=== PATIENT | female | born 1970 | race Caucasian/White ===

== ENCOUNTER → 2018-01-15 12:22 | Outpatient (CLI) | payer BC, SELFPAY ==
--- NOTE | 2018-01-15 12:30 | XR_ITS ---
XR acute abdomen series HISTORY: ITS.REASON: LUQ PAIN ORDERING PHYSICIAN: Julio Cesar Flores MD PATIENT AGE: 47 years COMPARISON: None FINDINGS: A frontal view of the chest shows patchy density in the left lung base consistent with atelectasis and/or infiltrate. Upright and supine views of the abdomen demonstrate surgical clips in the right upper quadrant. Faint calcific density is present in the mid aspect of the right kidney measuring up to 5 mm and in the upper pole the left kidney consistent bilateral nephrolithiasis. There are multiple pelvic calcifications present nonspecific and may be due to phleboliths. No intestinal obstruction or free air. IMPRESSION: 1. Left lower lobe atelectasis or infiltrate. 2. Bilateral nephrolithiasis
== END ==
PROVIDERS: PCP Family Medicine; Visit Provider Family Medicine
DX: R10.12 Left upper quadrant pain (principal)
CPT/HCPCS: 74021

== ENCOUNTER → 2018-02-05 14:24 | Outpatient (CLI) | payer BC, SELFPAY ==
--- NOTE | 2018-02-05 14:27 | XR_ITS ---
XR chest 2V HISTORY: ITS.REASON: PNEUMONIA ORDERING PHYSICIAN: Vlad Cheung MD PATIENT AGE: 47 years COMPARISON: 03/19/2015 FINDINGS: The cardiomediastinal silhouette and pulmonary vascularity are within normal limits. No lobar consolidation or collapse is evident. Linear densities are present in the right middle lobe and lingula consistent with atelectatic changes or fibrosis. No acute bony anomalies. IMPRESSION: Right middle lobe and lingular atelectasis or fibrosis otherwise negative
== END ==
PROVIDERS: PCP Family Medicine; Visit Provider Family Medicine
DX: J18.1 Lobar pneumonia, unspecified organism (principal)
CPT/HCPCS: 71046

== ENCOUNTER → 2018-02-20 13:17 | Outpatient (CLI) | payer BC, SELFPAY ==
--- NOTE | 2018-02-20 13:29 | CT_ITS ---
CT chest w con HISTORY: ITS.REASON: CHEST PAIN,ABNORMAL CXR ORDERING PHYSICIAN: Vlad Cheung MD PATIENT AGE: 47 years TECHNIQUE: Axial images obtained following the administration of 75 mL of Isovue 370 . Sagittal, and coronal reformatted images are also generated and reviewed. All CT scans at the facility use one or more dose reduction, viz: automated exposure control; ma/kV adjustment per patient size (including targeted exams where dose is matched to indication; i.e. head); or iterative reconstruction technique. COMPARISON: None FINDINGS: No evidence of aortic aneurysm or central pulmonary embolus. No mediastinal or hilar mass or adenopathy. No obvious coronary artery calcifications or pericardial effusion. There are dependent changes in the posterior hemithoraces bilaterally atelectatic changes are present in the right middle lobe, lingula, and left lower lobe/superior segment. No suspicious pulmonary nodules or effusions. No central obstructing lesions. Upper abdominal images are unremarkable. There is mild thoracic scoliosis convex right. IMPRESSION: 1. Atelectatic changes in the right middle lobe, lingula, and both lower lobes. 2. Old granulomatous disease. 3. Otherwise negative CT chest without contrast
== END ==
PROVIDERS: Family Provider Emergency Medicine; PCP Family Medicine; Visit Provider Family Medicine
DX: R07.9 Chest pain, unspecified (principal); R93.8 Abnormal findings on diagnostic imaging of other specified body structures
CPT/HCPCS: 71260; Q9967

== ENCOUNTER → 2018-05-04 07:24 | Outpatient (CLI) | payer BC, SELFPAY ==
[2018-05-04 07:30] LABS: Microscopic, Urine URINE MICROSCOPIC (MICROSCOPIC)
[2018-05-04 07:49] LABS: Appearance,Urine SL CLOUDY (Clear); Basophils # 0.1 K/mm3 (0-0.2); Basophils % 0.6 % (0.1-2.0); Bilirubin,Urine Negative (Negative); Blood, Urine Negative (Negative); Color,Urine YELLOW (Yellow); Eosinophils # 0.2 K/mm3 (0.0-0.4); Eosinophils % 2.2 % (0.1-12.0); Glucose,Urine (UA) Negative (Negative); Hematocrit 49.1 % (37.0-47.0); Hemoglobin 16.2 g/dL (12.2-16.2); Ketones,Urine Negative (Negative); Leukocyte Esterase,Urine Negative (Negative); Lymphocytes # 2.5 K/mm3 (0.7-4.5); Mean Corpuscular HGB Conc 32.9 g/dL (31.8-35.4); Mean Corpuscular Hemoglobin 30.9 pg (27.0-31.2); Mean Corpuscular Volume 93.8 fl (81-99); Monocytes # 0.3 K/mm3 (0.1-1.0); Neutrophils # 5.4 K/mm3 (1.8-7.8); Neutrophils % 63.2 % (37.0-80.0); Nitrate,Urine Negative (Negative); Platelet Count 351 K/mm3 (142-424); Protein,Urine Negative (Negative); Red Blood Count 5.24 M/mm3 (4.20-5.40); Red Cell Distribution Width 13.1 % (11.5-17.5); Specific Gravity, Urine 1.025 (1.005-1.030); Urobilinogen,Urine 0.2 EU/dl (0.2); White Blood Count 8.5 K/mm3 (4.8-10.8)
[2018-05-04 08:05] LABS: Bacteria,Urine 3+ /lpf; Mucus,Urine 1+ /lpf; WBC,Urine Occasional #/hpf (0-3)
[2018-05-04 10:10] LABS: Alanine Aminotransferase 22 U/L (12-78); Albumin Level 3.9 gm/dL (3.4-5.0); Albumin/Globulin Ratio 1.1 (1.1-1.8); Alkaline Phosphatase 149 U/L (46-116); Amylase 86 U/L (25-125); Anion Gap 14.4 mEq/L (5-15); Aspartate Amino Transferase 17 U/L (15-37); Blood Urea Nitrogen 8 mg/dL (7-18); Calcium 9.8 mg/dL (8.5-10.1); Carbon Dioxide 30 mmol/L (21.0-32.0); Chloride 104 mmol/L (98-107); Creatinine,Serum 0.91 mg/dL (0.55-1.02); Estimated Glomerular Filt Rate 66 ml/min (>60); Free T4 (Free Thyroxine) 1.37 ng/dl (0.76-1.46); GFR (African American) 80 ML/MIN (>60); Globulin 3.6 gm/dl (1.3-3.2); Glucose 88 mg/dL (74-106); Lipase 294 u/L (73-393); Potassium 4.4 mmoL/L (3.5-5.1); Sodium 144 mmol/L (136-145); Thyroid Stimulating Hormone 0.42 uIU/ml (0.358-3.740); Total Protein,Serum 7.5 gm/dL (6.4-8.2)
== END ==
PROVIDERS: Visit Provider Family Medicine
DX: M54.9 Dorsalgia, unspecified (principal); E03.9 Hypothyroidism, unspecified; R19.7 Diarrhea, unspecified
CPT/HCPCS: 36415; 80053; 81001; 82150; 83690; 84439; 84443; 85025; 87086

== ENCOUNTER → 2018-05-13 08:55 | Outpatient (CLI) | payer BC, SELFPAY ==
--- NOTE | 2018-05-13 08:59 | CT_ITS ---
CT abdomen pelvis w con CLINICAL INDICATION: Right upper quadrant pain ITS.REASON: PELVIC PAIN, UPPER ABD PAIN ORDERING PHYSICIAN: Vlad Cheung MD PATIENT AGE: 47 years COMPARISON: 03/12/2015 TECHNIQUE: Axial images obtained with sagittal and coronal reformats. All CT scans at the facility use one or more dose reduction, viz: automated exposure control; ma/kV adjustment per patient size (including targeted exams where dose is matched to indication; i.e. head); or iterative reconstruction technique. PROCEDURE: Oral Contrast: Redicat IV Contrast: 75 mL's of Isovue-370. FINDINGS: Atelectatic changes are present in both lower lobes. There is a 5 mm area of decreased attenuation within the left hepatic lobe lateral segment nonspecific too small to categorize. There has been a prior cholecystectomy. The spleen, adrenal glands, and pancreas are unremarkable. The kidneys have an unremarkable appearance. No renal or ureteral calculi. No hydronephrosis. No evidence of appendicitis, intestinal obstruction, or free air. Scattered diverticula are present involving the descending and sigmoid colon. There is very minimal haziness of the pericolic fat along the posterior aspect of the distal descending colon. This is of questionable clinical significance. Mild diverticulitis is a consideration. No pelvic mass or abnormal fluid collection is evident. No acute bony anomalies. IMPRESSION: 1. Colonic diverticulosis with very minimal haziness of the pericolic fat in the region of the distal descending colon the left lower quadrant. Mild diverticulitis is a consideration. 2. Bilateral lower lobe atelectatic changes. 3. Otherwise negative CT abdomen and pelvis. Unremarkable appendix
--- NOTE | 2018-05-13 08:59 | MM_ITS ---
MM Dig screening mamm BI w/CAD CAD Screening COMPARISON: Digital mammograms 05/11/2017 and 10/25/2016 INDICATION: There is no personal or family history of breast cancer TECHNIQUE: Standard CC and MLO images were obtained. R2 CAD reviewed. FINDINGS: Diffuse heterogenic fibroglandular densities are seen in both breast and the findings are bilateral and symmetrical. The small nodular density seen in the left breast on the previous exam is not seen and likely was a cyst which decompressed or was aspirated. A tiny nodular densities still seen right breast and this was noted to be cystic as well. There is no suspicious lesion in either breast and there are no suspicious microcalcifications. IMPRESSION: Diffusely dense parenchymal pattern no suspicious lesion seen BI-RADS Category: 2 Benign Finding(s) RECOMMENDED FOLLOW-UP: 1YR - 1 YEAR FOLLOW-UP (A letter has been sent to the patient regarding results of the study.)
== END ==
PROVIDERS: Family Provider Emergency Medicine; PCP Family Medicine; Visit Provider Family Medicine
DX: Z12.31 Encounter for screening mammogram for malignant neoplasm of breast (principal); R10.10 Upper abdominal pain, unspecified; R10.2 Pelvic and perineal pain
CPT/HCPCS: 74177; 77067; Q9967

== ENCOUNTER → 2018-08-19 13:42 | Outpatient (POV) | payer BC, SELFPAY | PROVIDERS: Family Provider Emergency Medicine; PCP Family Medicine; Visit Provider Nurse Practitioner Acute Care | DX: Z00.00 Encounter for general adult medical examination without abnormal findings (principal) ==

== ENCOUNTER → 2019-02-07 16:08 | Outpatient (CLI) | payer BC, SELFPAY ==
[2019-02-07 16:59] LABS: Basophils # 0.1 K/mm3 (0-0.2); Basophils % 0.6 % (0.1-2.0); Eosinophils # 0.2 K/mm3 (0.0-0.4); Eosinophils % 1.9 % (0.1-12.0); Hematocrit 45.5 % (37.0-47.0); Hemoglobin 15.4 g/dL (12.2-16.2); Lymphocytes # 2.9 K/mm3 (0.7-4.5); Lymphocytes % 36.2 % (10-50); Mean Corpuscular HGB Conc 33.7 g/dL (31.8-35.4); Mean Corpuscular Hemoglobin 31.5 pg (27.0-31.2); Mean Corpuscular Volume 93.3 fl (81-99); Mean Platelet Volume 7.1 fl (7.4-10.4); Monocytes # 0.3 K/mm3 (0.1-1.0); Monocytes % 4.1 % (1.7-9.3); Neutrophils # 4.5 K/mm3 (1.8-7.8); Neutrophils % 57.2 % (37.0-80.0); Platelet Count 359 K/mm3 (142-424); Red Blood Count 4.88 M/mm3 (4.20-5.40); Red Cell Distribution Width 13.5 % (11.5-17.5); White Blood Count 7.9 K/mm3 (4.8-10.8)
[2019-02-07 17:42] LABS: Hemoglobin A1C 5.7 % (0.0-7.0)
[2019-02-07 17:54] LABS: Alanine Aminotransferase 20 U/L (12-78); Albumin/Globulin Ratio 1.1 (1.1-1.8); Alkaline Phosphatase 128 U/L (46-116); Anion Gap 15.1 mEq/L (5-15); Aspartate Amino Transferase 15 U/L (15-37); Bilirubin,Total 0.4 mg/dL (0.2-1.0); Blood Urea Nitrogen 11 mg/dL (7-18); Calcium 9.5 mg/dL (8.5-10.1); Carbon Dioxide 28 mmol/L (21.0-32.0); Chloride 103 mmol/L (98-107); Chol/HDL Ratio 6.6 (1-3.5); Cholesterol 291 mg/dL (140-200); Creatinine,Serum 0.76 mg/dL (0.55-1.02); Estimated Glomerular Filt Rate 81 ml/min (>60); GFR (African American) 97 ML/MIN (>60); Globulin 3.5 gm/dl (1.3-3.2); Glucose 91 mg/dL (74-106); HDL Cholesterol 44 mg/dL (29-89); LDL Cholesterol 195 mg/dL (0-130); Potassium 4.1 mmoL/L (3.5-5.1); Sodium 142 mmol/L (136-145); Thyroid Stimulating Hormone 0.08 uIU/ml (0.358-3.740); Total Protein,Serum 7.5 gm/dL (6.4-8.2); Triglycerides 261 mg/dL (30-200); VLDL Cholesterol 52 mg/dL (0-40)
== END ==
PROVIDERS: PCP Internal Medicine Adolescent Medicine; Visit Provider Internal Medicine Adolescent Medicine
DX: R53.83 Other fatigue (principal)
CPT/HCPCS: 36415; 80053; 80061; 83036; 84443; 85025; 93225; 93226

== ENCOUNTER → 2019-02-12 11:25 | Outpatient (CLI) | payer BC, SELFPAY ==
--- NOTE | 2019-02-12 11:36 | XR_ITS ---
XR chest 2V HISTORY: ITS.REASON: SHORTNESS OF BREATH ORDERING PHYSICIAN: Yessica Shrestha PATIENT AGE: 48 years COMPARISON: 02/10/2019 FINDINGS: The cardiomediastinal silhouette and pulmonary vascularity are within normal limits. Patchy density in the right lung base has improved. There is persistent linear density in the right lower lobe and left midlung consistent with areas of scarring. Calcified granuloma is present in left upper lobe. IMPRESSION: Resolved right basilar airspace disease with chronic changes
[2019-02-12 12:04] LABS: Basophils # 0.1 K/mm3 (0-0.2); Basophils % 0.5 % (0.1-2.0); Eosinophils # 0.1 K/mm3 (0.0-0.4); Eosinophils % 1.1 % (0.1-12.0); Hematocrit 45.1 % (37.0-47.0); Lymphocytes # 2.4 K/mm3 (0.7-4.5); Lymphocytes % 27.1 % (10-50); Mean Corpuscular HGB Conc 33.2 g/dL (31.8-35.4); Mean Corpuscular Hemoglobin 31.5 pg (27.0-31.2); Mean Platelet Volume 7.2 fl (7.4-10.4); Monocytes # 0.4 K/mm3 (0.1-1.0); Monocytes % 4.1 % (1.7-9.3); Neutrophils % 67.1 % (37.0-80.0); Platelet Count 363 K/mm3 (142-424); Red Blood Count 4.75 M/mm3 (4.20-5.40); Red Cell Distribution Width 13.2 % (11.5-17.5); White Blood Count 8.9 K/mm3 (4.8-10.8)
[2019-02-12 12:18] LABS: Alanine Aminotransferase 19 U/L (12-78); Albumin Level 3.7 gm/dL (3.4-5.0); Albumin/Globulin Ratio 0.9 (1.1-1.8); Alkaline Phosphatase 110 U/L (46-116); Anion Gap 14.1 mEq/L (5-15); Aspartate Amino Transferase 14 U/L (15-37); Bilirubin,Total 0.5 mg/dL (0.2-1.0); Blood Urea Nitrogen 10 mg/dL (7-18); Calcium 9.8 mg/dL (8.5-10.1); Carbon Dioxide 27 mmol/L (21.0-32.0); Chloride 105 mmol/L (98-107); Creatinine,Serum 0.81 mg/dL (0.55-1.02); Estimated Glomerular Filt Rate 75 ml/min (>60); GFR (African American) 91 ML/MIN (>60); Globulin 3.9 gm/dl (1.3-3.2); Glucose 98 mg/dL (74-106); Potassium 4.1 mmoL/L (3.5-5.1); Sodium 142 mmol/L (136-145); Total Protein,Serum 7.6 gm/dL (6.4-8.2); Troponin I < 0.02 ng/ml (0.00-0.06)
[2019-02-12 12:21] LABS: D-Dimer < 100 ng/mL (0-400)
== END ==
PROVIDERS: PCP Internal Medicine Adolescent Medicine; Visit Provider Nurse Practitioner Family
DX: R07.89 Other chest pain (principal); R06.02 Shortness of breath; R05 Cough
CPT/HCPCS: 36415; 71046; 80053; 84484; 85025; 85378

== ENCOUNTER → 2019-02-26 09:13 | Outpatient (CLI) | payer BC, SELFPAY ==
--- NOTE | 2019-02-26 | CA_ITS ---
PROCEDURE: 2-D M-mode and color Doppler study INDICATIONS FOR THE TEST: Chest pain + COPD Heart Murmur+ Tobacco Smoking+ Palpitations+ Fatigue Syncope Edema Hypertension Diabetes Mellitus Rheumatic Fever SOB PATRICK+Obesity Hyperlipidemia Family History HD Additional History PATIENT INFORMATION HEIGHT: 64 WEIGHT:150 GENDER: Female B/P:115/80 2-D/M-MODE INTERPRETATION: 2-D MEASUREMENTS OBSERVED VALUES IN CMS Right Ventricular Dimension (RVDd) 1.9 Interventricular Septum (Thickness)(IVsd) 1.0 Left Ventricular Internal Dimensions(LVIDd) 4.3 Left Ventricular Posterior Wall (Thickness)(LVPWd) 0.9 Aortic Root 2.3 Aortic Cusp Separation 1.7 Left Atrial Dimensions (LAD) 3.0 2D 1. Left atrium is normal size, left ventricle is normal size, there is no concentric left ventricular hypertrophy, visually estimated ejection fraction 55% with no regional wall motion abnormality 2. The right atrium and right ventricle are normal size and contractility. 3. The aortic valve is minimally thickened and fibrosed. 4. The mitral and tricuspid valvular grossly normal. 5. The pulmonic valve is poorly visualized. 6. No significant pericardial effusion noted. DOPPLER INTERROGATION: Doppler interrogation of the aortic, mitral and tricuspid valvular presence of mild mitral and tricuspid regurgitation. Tricuspid regurgitation jet velocity is inadequate for calculation of the right ventricular systolic pressure, diastolic parameters are inconclusive. CONCLUSION: 1. Normal left ventricular size, preserved left ventricular systolic function, visually estimated ejection fraction 55% with no regional wall motion abnormality, diastolic parameters are inconclusive. 2. Mild mitral and tricuspid regurgitation 3. No significant pericardial effusion noted.
== END ==
PROVIDERS: PCP Internal Medicine Adolescent Medicine; Visit Provider Nurse Practitioner Family
DX: R06.02 Shortness of breath (principal)
CPT/HCPCS: 93306

== ENCOUNTER → 2019-03-12 07:49 | Outpatient (CLI) | payer BC, SELFPAY ==
--- NOTE | 2019-03-12 07:50 | NM_ITS ---
SPECT MYOCARDIAL PERFUSION SCAN, REST AND STRESS: EXERCISE STRESS: [facility] REVIEW QGS EF AND WALL MOTION EVALUATION: QPS - PERFUSION EVALUATION: HISTORY: Chest pain, SOB, Palpitations, Fatigue, Tobacco use, Family history PROCEDURE: Rest imaging performed after administration of10.64 millicuries Tc MIBI. Dose administered at8:00 a.m., with imaging thereafter. Stress imaging was then performed following7 minutes of exercise stress. The patient achieved a heart [id number] with projected heart rate of145 . Resting BP139/72 with stress 152/66. At maximum exercise stress,31.9 millicuries Tc MIBI administered at9:40 a.m. with [id number] minutes thereafter. FINDINGS: Perfusion Evaluation: The single slice spect images as well as the [facility] bull's-eye data summary were reviewed. Wall Motion and Ejection Fraction Evaluation: Gated SPECT review and analysis used to evaluate these features. There is a 78 % left ventricular ejection fraction. There seems to be good wall motion Stress images reveal decreased activity in the anterior and apical wall while rest images reveal uniform myocardial activity IMPRESSION: Reversible ischemia in the anterior apical wall with normal ejection fraction normal wall motion. High risk abnormal stress test
--- NOTE | 2019-03-12 08:10 | HMH.ITSHM ---
Current Home Medications as stated by this patient Antonette Baldwin or airport representative. []QUETIAPINE ESCITALOPRAM LEVOTHYROXINE BISOPROLOL
== END ==
PROVIDERS: PCP Internal Medicine Adolescent Medicine; Visit Provider Internal Medicine
DX: R00.2 Palpitations (principal); R06.02 Shortness of breath
CPT/HCPCS: 78452; 93017; A9502

== ENCOUNTER 2019-06-04 16:20 | Outpatient (CLI) | payer BC, SELFPAY ==
[2019-06-04 16:40] VITALS: BP 112/71; PULSE 71; RESP 18; TEMP 36.7; O2SAT 97
== END 2019-06-04 16:50 | disposition home or self-care (01) ==
LOC: INF 16:22
PROVIDERS: PCP Internal Medicine Adolescent Medicine; Visit Provider Internal Medicine Adolescent Medicine
DX: R51 Headache (principal); R11.2 Nausea with vomiting, unspecified
CPT/HCPCS: 96372

== ENCOUNTER → 2019-06-06 11:26 | Outpatient (CLI) | payer BC, SELFPAY ==
[2019-06-06 12:22] LABS: Basophils # 0.1 K/mm3 (0-0.2); Basophils % 0.6 % (0.1-2.0); Eosinophils # 0.2 K/mm3 (0.0-0.4); Eosinophils % 2.2 % (0.1-12.0); Hematocrit 43.6 % (37.0-47.0); Lymphocytes # 2.6 K/mm3 (0.7-4.5); Lymphocytes % 28.3 % (10-50); Mean Corpuscular HGB Conc 32.2 g/dL (31.8-35.4); Mean Corpuscular Hemoglobin 29.6 pg (27.0-31.2); Mean Corpuscular Volume 92.1 fl (81-99); Monocytes # 0.3 K/mm3 (0.1-1.0); Monocytes % 3.7 % (1.7-9.3); Neutrophils # 5.9 K/mm3 (1.8-7.8); Neutrophils % 65.2 % (37.0-80.0); Platelet Count 346 K/mm3 (142-424); Red Blood Count 4.73 M/mm3 (4.20-5.40); Red Cell Distribution Width 13.6 % (11.5-17.5)
[2019-06-06 14:11] LABS: Alanine Aminotransferase 29 U/L (12-78); Albumin Level 3.6 gm/dL (3.4-5.0); Albumin/Globulin Ratio 1.1 (1.1-1.8); Alkaline Phosphatase 127 U/L (46-116); Anion Gap 12.4 mEq/L (5-15); Aspartate Amino Transferase 18 U/L (15-37); Bilirubin,Total 0.3 mg/dL (0.2-1.0); Blood Urea Nitrogen 11 mg/dL (7-18); Calcium 9.3 mg/dL (8.5-10.1); Carbon Dioxide 30 mmol/L (21.0-32.0); Chloride 104 mmol/L (98-107); Creatinine,Serum 0.93 mg/dL (0.55-1.02); Estimated Glomerular Filt Rate 64 ml/min (>60); GFR (African American) 77 ML/MIN (>60); Globulin 3.2 gm/dl (1.3-3.2); Glucose 103 mg/dL (74-106); Lipase 285 u/L (73-393); Potassium 4.4 mmoL/L (3.5-5.1); Sodium 142 mmol/L (136-145); Total Protein,Serum 6.8 gm/dL (6.4-8.2)
== END ==
PROVIDERS: Visit Provider Internal Medicine Adolescent Medicine
DX: R10.12 Left upper quadrant pain (principal)
CPT/HCPCS: 36415; 80053; 83690; 85025

== ENCOUNTER → 2019-06-26 10:30 | Outpatient (CLI) | payer BC, SELFPAY ==
--- NOTE | 2019-06-26 10:34 | MM_ITS ---
MM Dig screening mamm BI w/CAD CAD Screening COMPARISON: Digital mammograms with CAD 05/13/2018 and 05/11/2017 INDICATION: There is no personal or family history of breast cancer TECHNIQUE: Standard CC and MLO images were obtained. R2 CAD reviewed. FINDINGS: There is a moderate and diffusely dense and heterogenic parenchymal pattern. The findings are bilateral and symmetrical. There is a stable tiny benign-appearing nodular density just deep to the nipple right breast. There is no new or suspicious lesion in either breast and there are no suspicious microcalcifications. There is a benign-appearing microcalcification left breast. IMPRESSION: Moderate heterogenic density with stable benign-appearing nodular density right breast BI-RADS Category: 2 Benign Finding(s) RECOMMENDED FOLLOW-UP: 1YR - 1 YEAR FOLLOW-UP (A letter has been sent to the patient regarding results of the study.)
== END ==
PROVIDERS: PCP Internal Medicine Adolescent Medicine; Visit Provider Internal Medicine Adolescent Medicine
DX: Z12.31 Encounter for screening mammogram for malignant neoplasm of breast (principal)
CPT/HCPCS: 77067

== ENCOUNTER → 2019-07-10 10:23 | Outpatient (CLI) | payer BC, SELFPAY ==
--- NOTE | 2019-07-10 10:29 | XR_ITS ---
PROCEDURE: XR CHEST 2V CLINICAL HISTORY: CP chest pain, current smoker, shortness of air COMPARISON: CHESTW CT chest w con from 02/20/2018 CXR2V XR chest 2V from 06/28/2018 CXR1VP XR chest portable from 02/10/2019 CXR2V XR chest 2V from 02/12/2019 FINDINGS: The cardiomediastinal silhouette and pulmonary vascularity are within normal limits.There are atelectatic/fibrotic changes in the lingula. Slight increased density is noted in the right lung base medially and is probably related to pericardial fat pad the remaining lungs are clear. No acute bony anomalies. IMPRESSION: No acute finding. Atelectatic or fibrotic changes within the lingula which are slightly worse from the previous exam Dictated by: Geraldo Bryan MD 07/10/2019 17:47 Signed by: <Electronically signed by Geraldo Bryan MD in [place]> 07/10/2019 17:47
== END ==
PROVIDERS: PCP Internal Medicine Adolescent Medicine; Visit Provider Internal Medicine Adolescent Medicine
DX: R07.9 Chest pain, unspecified (principal)
CPT/HCPCS: 71046

== ENCOUNTER → 2019-07-23 07:29 | Outpatient (CLI) | payer BC, SELFPAY ==
[2019-07-23 09:24] LABS: Anion Gap 12.6 mEq/L (5-15); Blood Urea Nitrogen 19 mg/dL (7-18); Calcium 9.2 mg/dL (8.5-10.1); Carbon Dioxide 29 mmol/L (21.0-32.0); Chloride 104 mmol/L (98-107); Creatinine,Serum 1.06 mg/dL (0.55-1.02); Estimated Glomerular Filt Rate 55 ml/min (>60); GFR (African American) 66 ML/MIN (>60); Glucose 88 mg/dL (74-106); Potassium 4.6 mmoL/L (3.5-5.1); Sodium 141 mmol/L (136-145)
== END ==
PROVIDERS: Visit Provider Nurse Practitioner Family
DX: I51.89 Other ill-defined heart diseases (principal); I99.8 Other disorder of circulatory system; R06.02 Shortness of breath; R07.89 Other chest pain
CPT/HCPCS: 36415; 80048

== ENCOUNTER → 2020-02-20 10:53 | Outpatient (CLI) | payer BC, SELFPAY ==
--- NOTE | 2020-02-20 13:00 | CT_ITS ---
PROCEDURE: CT ABDOMEN PELVIS WO/W CON CLINICAL INDICATION: LLQ PAIN, FLANK PAIN, PELVIC PAIN COMPARISON: ABDPELW CT abdomen pelvis w con from 05/13/2018 CT ABDOMEN PELVIS W CON from 09/16/2019 TECHNIQUE: IV Contrast: 75ML OPTIRAY 350 Oral Contrast 450ml Redicat Axial images obtained with sagittal and coronal reformats. All CT scans at the facility use one or more dose reduction, viz: automated exposure control, ma/kV adjustment per patient size (including targeted exams where dose is matched to indication, i.e. head), or iterative reconstruction technique. FINDINGS: LOWER THORAX: There are atelectatic changes in both lower lobes. ABDOMEN & PELVIS: The spleen, pancreas, adrenal glands, and kidneys have an unremarkable appearance. There is a small hypodensity in the left hepatic lobe superiorly at 8 mm nonspecific. No evidence of appendicitis. No intestinal obstruction or free air. There is thickening involving the descending colon on the left. This is more prominent in the superior aspect of the descending colon with a hyperdense diverticulum at this area. This may represent a combination of diverticulitis with colitis. There is thickening of the sigmoid colon as well. There is no abscess or free air. No acute bony findings. IMPRESSION: There is thickening of the descending colon and sigmoid colon with more focal area of thickening of the proximal descending colon with stranding of the pericolic fat. These findings are suspicious for mild diffuse colitis with diverticulitis in the proximal descending colon. No abscess or free air. The Bilateral lower lobe atelectatic change. Nonspecific hypodensity in the left hepatic lobe which appear stable. Dictated by: Geraldo Bryan MD 02/20/2020 14:11 Electronically signed by Geraldo Bryan MD in [place] 02/20/2020 14:11
== END ==
PROVIDERS: PCP Internal Medicine Adolescent Medicine; Visit Provider Internal Medicine Adolescent Medicine
DX: R10.2 Pelvic and perineal pain (principal)
CPT/HCPCS: 74178; Q9967

== ENCOUNTER → 2020-06-28 15:05 | Outpatient (CLI) | payer BC, SELFPAY ==
[2020-06-28 16:21] LABS: Blood Urea Nitrogen 9 mg/dl (7-17); Calcium 9.7 mg/dl (8.4-10.2); Carbon Dioxide 26 mmol/L (22.0-30.0); Chloride 106 mmol/L (98-107); Estimated Glomerular Filt Rate 88 ml/min (>60); GFR (African American) 107 ML/MIN (>60); Glucose 93 mg/dl (74-100); Sodium 143 mmol/L (136-145)
[2020-06-28 18:54] LABS: NT Pro Brain Natriuretic Pep. 176 pg/mL (0-125)
== END ==
PROVIDERS: Visit Provider Physician Assistant
DX: R00.2 Palpitations (principal); R07.9 Chest pain, unspecified; I51.89 Other ill-defined heart diseases; I99.8 Other disorder of circulatory system; R06.00 Dyspnea, unspecified
CPT/HCPCS: 36415; 80048; 83880

== ENCOUNTER → 2020-07-02 08:17 | Outpatient (CLI) | payer BC, SELFPAY ==
--- NOTE | 2020-07-02 08:21 | MM_ITS ---
PROCEDURE: MM DIG SCREENING MAMM BI W/CAD Digital Breast Tomosynthesis Included CLINICAL INDICATION: SCREENING There is no personal or family history of breast cancer. COMPARISON: MG DMDB DIG MAMM-DX ELADIO W/CAD from 05/11/2017 MG SCBI MM Dig screening mamm BI w/CAD from 05/13/2018 MG DIG MAMM-SCREEN ELADIO from 06/26/2019 TECHNIQUE: Standard CC and MLO images and 3D Tomosynthesis was obtained. R2 CAD reviewed. FINDINGS: Moderate scattered fibroglandular densities are seen central portion of both breasts. There is a benign-appearing microcalcification left breast. There is a stable benign-appearing nodular density subareolar region right breast best appreciated on the elaine images. There is no suspicious lesion and no suspicious microcalcifications. IMPRESSION: Moderate breast density with no suspicious lesions seen BI-RAD Category: 2 Benign Finding(s) FOLLOW-UP: 1YR 1 Year Follow-up (A letter has been sent to the patient regarding results of the study.) Dictated Dr. Raúl Schmitt MD 07/02/2020 14:15 Dr. Raúl Willard MD in [place] 07/02/2020 14:15
== END ==
PROVIDERS: PCP Internal Medicine Adolescent Medicine; Visit Provider Internal Medicine Adolescent Medicine
DX: Z12.31 Encounter for screening mammogram for malignant neoplasm of breast (principal)
CPT/HCPCS: 77063; 77067

== ENCOUNTER → 2020-07-05 13:53 | Outpatient (CLI) | payer BC, SELFPAY ==
[2020-07-05 15:23] LABS: Chloride 105 mmol/L (98-107); Potassium 4.5 mmoL/L (3.5-5.1); Sodium 142 mmol/L (136-145)
[2020-07-05 15:26] LABS: Anion Gap 12.5 mEq/L (5-15); Blood Urea Nitrogen 13 mg/dl (7-17); Calcium 10.6 mg/dl (8.4-10.2); Carbon Dioxide 29 mmol/L (22.0-30.0); Estimated Glomerular Filt Rate 76 ml/min (>60); GFR (African American) 92 ML/MIN (>60); Glucose 114 mg/dl (74-100)
[2020-07-05 15:36] LABS: NT Pro Brain Natriuretic Pep. 104 pg/mL (0-125)
== END ==
PROVIDERS: Visit Provider Physician Assistant
DX: R00.2 Palpitations (principal); R07.9 Chest pain, unspecified; I51.89 Other ill-defined heart diseases; I99.8 Other disorder of circulatory system
CPT/HCPCS: 36415; 80048; 83880

== ENCOUNTER 2020-09-23 16:35 | Emergency (ER) | payer BC, SELFPAY ==
[2020-09-23 17:05] VITALS: BP 144/88; PULSE 81; RESP 14; TEMP 36.9; O2SAT 99; BMI 24.3
--- NOTE | 2020-09-23 17:08 | HMH.EDUTC ---
[facility] [place] Disposition Clinical Impression: Sinusitis Qualifiers: Sinusitis location: unspecified location Chronicity: acute Recurrence: non-recurrent Qualified Code(s): J01.90 - Acute sinusitis, unspecified Disposition: Home, Self-Care Condition on Discharge: Good Instructions: Sinusitis, DI for Sinusitis Additional Instructions: Drink plenty of fluids. Take tylenol for pain or fever. Take the medications as directed. Follow up with your regular doctor. GO TO THE ER FOR ANY WORSENING SYMPTOMS Prescriptions: methylPREDNISolone [Medrol] 4 mg PO DIRECTED 6 Days #21 tab.ds.pk Transmission Status: Received by [facility] Azithromycin [Z-Federico 250mg Tab*] 250 mg PO UD DOSE PK #6 tab Transmission Status: Received by [facility] Referrals: Nathanael Loyd MD [Primary Care Provider] - Forms: Work/School Release Time of Disposition: 17:16 Medical Decision Making - Medical Records Medical records reviewed: No: I reviewed the patient's medical records. - Ervni Inquiry Pt receiving controlled substance: No Vital Signs: 09/23/20 17:05 09/23/20 17:17 Temperature 98.5 F 98.5 F Temperature Source Oral Pulse Rate 81 Pulse Rate [Right Brachial] 81 Respiratory Rate 14 14 Blood Pressure 144/88 H Blood Pressure [Right Arm] 144/88 H Blood Pressure Mean [Right Arm] 106 Blood Pressure Source [Right Arm] Automatic Cuff Blood Pressure Position [Right Arm] Sitting 02 Sat by Pulse Oximetry 99 Oxygen Delivery Method Room Air [facility] [place] HPI - General Stated complaint: sinus issues Time Seen by Provider: 09/23/20 17:08 - History of Present Illness Provider Complaint: She states that she has had sinus congestion and sinus drainage for the past 1 week. She denies any known exposure to covid, but she works around a lot of people, so she would like to be tested for this also. - Related Data Home Medications Medication Instructions Recorded Confirmed levothyroxine 150 mcg tablet 125 mcg PO DAILY tab 02/26/19 09/23/20 Furosemide [Furosemide 20mg Tab*] 20 mg PO DAILY 09/23/20 09/23/20 Previous Rx's Medication Instructions Recorded Azithromycin [Z-Federico 250mg Tab*] 250 mg PO UD DOSE PK #6 tab 09/23/20 methylPREDNISolone [Medrol] 4 mg PO DIRECTED 6 Days #21 09/23/20 tab.ds.pk Allergies Allergy/AdvReac Type Severity Reaction Status Date / Time No Known Allergies Allergy Verified 07/05/20 14:16 [facility] History - Hepatitis A Screen Attestation statement:: This patient has been screened for Hepatitis A risk factors. I have reviewed the patient's past medical history: Yes Medical History: Reports:: Anxiety, Depression, Kidney Stones, Palpitations Denies:: Cancer, Diabetes Mellitus Type 1, Diabetes Mellitus Type 2, Hypertension, Internal Pacemaker, Lung Disease, MRSA, Seizures Other Medical History: Reports: Hypothyroidism, Other Other Surgeries: Yes: Cardiac Catheterization, Cholecystectomy, Other (Fistula Repair(3)). No: Pacemaker Amputation: No Fractures: No - Social History Smoking Status: Current every day smoker Tobacco Type: cigarettes # Packs/Day (cigarettes): 1 #Yrs smoked (if former smoker): 10 Alcohol Intake: never Substance Use Type: denies use Occupational Status: employed Housing: house Household Members: spouse - Psychiatric History Pschychiatric History:: Reports:: Anxiety, Depression Family Hx:: Cancer, Coronary Artery Disease, Diabetes, Heart Attack, Hyperlipidemia, Hypertension, Stroke Comment: Father- of [place]@57. Mother-AFIB. Siblings-CAD ROS Obtained: Yes All systems reviewed & no additional complaints - Constitutional Constitutional: Reports system reviewed and no additional complaints, except as docu - Eyes Eyes: Reports system reviewed and no additional complaints, except as docu - ENT Ears, Nose, Mouth, and Throat: Reports as per HPI - Cardiovascular Cardiovascular: Reports system reviewed and no additional complaints, except a
[2020-09-23 17:17] VITALS: BP 144/88; PULSE 81; RESP 14; TEMP 36.9; O2SAT 99
== END 2020-09-23 17:20 | disposition home or self-care (01) ==
PROVIDERS: Emergency Provider Nurse Practitioner Family; PCP Internal Medicine Adolescent Medicine
DX: J01.90 Acute sinusitis, unspecified (principal); Z20.828 Contact with and (suspected) exposure to other viral communicable diseases; E03.9 Hypothyroidism, unspecified; F41.8 Other specified anxiety disorders; Z87.442 Personal history of urinary calculi; F17.210 Nicotine dependence, cigarettes, uncomplicated
CPT/HCPCS: 99201; U0003

== ENCOUNTER 2021-05-05 10:59 | Emergency (ER) | payer BC, SELFPAY ==
--- NOTE | 2021-05-05 10:55 | ECG_ITS ---
APPROVED REPORT Exam: Resting ECG HR:71 bpm ECG Measurements Heart Rate 71 AXES AR 116 P 44 QRSd 86 QRS 85 QT 420 T 30 QTc 456 Conclusion Normal sinus rhythm RSR' or QR pattern in V1 suggests right ventricular conduction delay Nonspecific T wave abnormality Abnormal ECG Electronically signed by : Kevyn Fernando, 05/07/2021 10:59:15
[2021-05-05 11:00] VITALS: BP 118/80; PULSE 79; RESP 18; TEMP 36.9; O2SAT 98; BMI 26.1
--- NOTE | 2021-05-05 11:07 | XR_ITS ---
PROCEDURE: XR CHEST PORTABLE CLINICAL HISTORY: soa Chest pain and shortness of air COMPARISON: CT CHESTW CT chest w con from 02/20/2018 CR CXR2V XR chest 2V from 02/12/2019 CR XR CHEST 2V from 07/10/2019 CR XR CHEST 2V from 09/15/2019 FINDINGS: The cardiomediastinal silhouette and pulmonary vascularity are within normal limits. Atelectatic changes are present in the left lower lobe. The remaining lungs are clear. No acute bony abnormalities. IMPRESSION: Mild left lower lobe atelectasis Dictated by: Geraldo Bryan MD 05/05/2021 11:48 Geraldo Bryan MD in [place] 05/05/2021 11:48
--- NOTE | 2021-05-05 11:12 | HMH.EDGENADL ---
ED Disposition Clinical Impression: Chest pain Disposition: Home, Self-Care Condition on Discharge: Good Instructions: DI for Atypical Chest Pain - Critical Care Critical Care Time: No Attestation: On , the high probability of a clinically significant, sudden or life threatening deterioration of the following system(s) required my full and direct attention, intervention and personal management. The time I documented below is in addition to time spent performing reported procedures but includes the following listed in this critical care notation. Medical Decision Making - Medical Records Medical records reviewed: Yes: I reviewed the patient's medical records. - Ervin Inquiry Pt receiving controlled substance: No Vital Signs: 05/05/21 11:00 05/05/21 12:00 05/05/21 12:30 Temperature 98.5 F Temperature Source Oral Pulse Rate 67 69 Pulse Rate [Left Radial] 79 Respiratory Rate 18 14 17 Blood Pressure 97/71 L 98/69 L Blood Pressure [Right Arm] 118/80 Blood Pressure Mean 78 82 Blood Pressure Mean [Right Arm] 92 Blood Pressure Source [Right Arm] Automatic Cuff Blood Pressure Position [Right Arm] Sitting 02 Sat by Pulse Oximetry 98 98 Oxygen Delivery Method Room Air 05/05/21 13:00 Temperature Temperature Source Pulse Rate 64 Pulse Rate [Left Radial] Respiratory Rate 17 Blood Pressure 105/67 L Blood Pressure [Right Arm] Blood Pressure Mean 75 Blood Pressure Mean [Right Arm] Blood Pressure Source [Right Arm] Blood Pressure Position [Right Arm] 02 Sat by Pulse Oximetry 98 Oxygen Delivery Method - Lab Data Lab Results 05/05/21 11:00: WBC 10.5, RBC 4.83, Hgb 15.6, Hct 45.4, MCV 94.1, MCH 32.4 H, MCHC 34.4, RDW 13.3, Plt Count 369, MPV 7.4, Neut % (Auto) 64.7, Lymph % (Auto) 28.6, [place] % (Auto) 3.5, Eos % (Auto) 2.2, Baso % (Auto) 0.9, Neut # (Auto) 6.8, Lymph # (Auto) 3.0, [place] # (Auto) 0.4, Eos # (Auto) 0.2, Baso # (Auto) 0.1 05/05/21 11:00: D-Dimer 0.45 05/05/21 11:00: Sodium 140, Potassium 3.4 L, Chloride 102, Carbon Dioxide 27, Anion Gap 14.4, BUN 14, Creatinine 0.90, Estimated Creat Clear 80, Estimated GFR 66, Est GFR ( Amer) 80, Glucose 94, Calcium 9.6, Magnesium 2.2, Total Bilirubin 0.8, AST 28, ALT 12, Alkaline Phosphatase 104, Troponin I < 0.01, Total Protein 9.0 H, Albumin 5.3 H, Globulin 3.7 H, Albumin/Globulin Ratio 1.4 05/05/21 11:00: Serum HCG, Qual Negative 05/05/21 11:15: Chlamy pneumoniae PCR Not detected, Adenovirus (PCR) Not detected, B. pertussis DNA (PCR) Not detected, Coronavirus OC43 (PCR) Not detected, Coronavirus HKU1 (PCR) Not detected, Coronavirus 229E (PCR) Not detected, SARS-CoV-2 (PCR) Not detected, Coronavirus NL63 (PCR) Not detected, Human Metapneumovir PCR Not detected, Influenza A (H1) PCR Not detected, Influ A (H1N1/09) PCR Not detected, Influenza A (H3) PCR Not detected, Influenza Type A (PCR) Not detected, Influenza Type B (PCR) Not detected, M. pneumoniae (PCR) Not detected, Parainfluenza 1 (PCR) Not detected, Parainfluenza 2 (PCR) Not detected, Parainfluenza 3 (PCR) Not detected, Parainfluenza 4 (PCR) Not detected, RSV (PCR) Not detected, Entero/Rhino (PCR) Not detected 05/05/21 13:30: Troponin I < 0.01 Result diagrams: 05/05/21 11:00 05/05/21 11:00 Orders (Tests/Meds): ED MEDICATIONS Discontinued Medications Generic Name Dose Route Start Last Admin Trade Name Freq PRN Reason Stop Dose Admin Aspirin 325 mg 05/05/21 11:08 05/05/21 11:20 Aspirin 325mg Tablet PO 05/05/21 11:09 325 mg ONCE ONE Administration Nitroglycerin 0.4 mg 05/05/21 11:08 05/05/21 11:20 Nitroglycerin 0.4mg Sl Tablet SL 05/05/21 11:09 0.4 mg ONCE ONE Administration ORDERS Category Date Time Status Troponin I Q3H Lab 05/05/21 17:15 Ordered Medical Decision Narrative: 50-year-old female presents with chest pain. She had recent heart cath without significant atherosclerotic disease. No evidence of pulmonary edema on exam.
[2021-05-05 11:22] LABS: Adenovirus,PCR Not Detected (NotDetected); Bordetella Pertussis Not Detected (NotDetected); Chlamydophila Pneumoniae, PCR Not Detected (NotDetected); Coronavirus 19, PCR Not Detected (NotDetected); Coronavirus 229E Not Detected (NotDetected); Coronavirus NL63 Not Detected (NotDetected); Coronavirus OC43 Not Detected (NotDetected); Coronovirus HKU1,PCR Not Detected (NotDetected); Human Metapneumovirus Not Detected (NotDetected); Influenza A, PCR Not Detected (NotDetected); Influenza AH1, 2009 Not Detected (NotDetected); Influenza AH1, PCR Not Detected (NotDetected); Influenza AH3,PCR Not Detected (NotDetected); Influenza B, PCR Not Detected (NotDetected); Mycoplasma Pneumoniae, PCR Not Detected (NotDetected); Parainfluenza 1, PCR Not Detected (NotDetected); Parainfluenza 2, PCR Not Detected (NotDetected); Parainfluenza 3, PCR Not Detected (NotDetected); Parainfluenza 4, PCR Not Detected (NotDetected); Respiratory Syncytial Virus Not Detected (NotDetected); Rhinovirus/Enterovirus Not Detected (NotDetected)
[2021-05-05 11:22] LABS: Basophils # 0.1 K/mm3 (0-0.2); Basophils % 0.9 % (0.1-2.0); Eosinophils # 0.2 K/mm3 (0.0-0.4); Eosinophils % 2.2 % (0.1-12.0); Hematocrit 45.4 % (37.0-47.0); Hemoglobin 15.6 g/dL (12.2-16.2); Lymphocytes % 28.6 % (10-50); Mean Corpuscular HGB Conc 34.4 g/dL (31.8-35.4); Mean Corpuscular Hemoglobin 32.4 pg (27.0-31.2); Mean Corpuscular Volume 94.1 fl (81-99); Mean Platelet Volume 7.4 fl (7.4-10.4); Monocytes # 0.4 K/mm3 (0.1-1.0); Monocytes % 3.5 % (1.7-9.3); Neutrophils # 6.8 K/mm3 (1.8-7.8); Neutrophils % 64.7 % (37.0-80.0); Platelet Count 369 K/mm3 (142-424); Red Blood Count 4.83 M/mm3 (4.20-5.40); Red Cell Distribution Width 13.3 % (11.5-17.5); White Blood Count 10.5 K/mm3 (4.8-10.8)
[2021-05-05 11:30] LABS: Chloride 102 mmol/L (98-107); Potassium 3.4 mmoL/L (3.5-5.1); Sodium 140 mmol/L (136-145)
[2021-05-05 11:31] LABS: HCG Qualitative, Serum Negative (Negative)
[2021-05-05 11:32] LABS: Alanine Aminotransferase 12 U/L (12-78); Alkaline Phosphatase 104 U/L (38-126); Anion Gap 14.4 mEq/L (5-15); Aspartate Amino Transferase 28 U/L (14-36); Bilirubin,Total 0.8 mg/dl (0.2-1.3); Blood Urea Nitrogen 14 mg/dl (7-17); Carbon Dioxide 27 mmol/L (22.0-30.0); Creatinine Clearance Estimated 80 mL/min (50-200); Estimated Glomerular Filt Rate 66 ml/min (>60); GFR (African American) 80 ML/MIN (>60)
[2021-05-05 11:33] LABS: Albumin Level 5.3 g/dl (3.5-5.0); Albumin/Globulin Ratio 1.4 (1.1-1.8); Calcium 9.6 mg/dl (8.4-10.2); Globulin 3.7 g/dL (1.3-3.2); Glucose 94 mg/dl (74-100); Magnesium 2.2 mg/dl (1.6-2.3)
[2021-05-05 11:37] LABS: D-Dimer 0.45 ug/mL (0.0-0.5)
[2021-05-05 11:46] LABS: Troponin I < 0.01 ng/ml (0.00-0.034)
[2021-05-05 12:00] VITALS: BP 97/71; PULSE 67; RESP 14
[2021-05-05 12:30] VITALS: BP 98/69; PULSE 69; RESP 17; O2SAT 98
[2021-05-05 13:00] VITALS: BP 105/67; PULSE 64; RESP 17; O2SAT 98
[2021-05-05 14:05] LABS: Troponin I < 0.01 ng/ml (0.00-0.034)
[2021-05-05 14:23] VITALS: BP 108/74; PULSE 73; RESP 16; TEMP 36.7; O2SAT 98
== END 2021-05-05 14:28 | disposition home or self-care (01) ==
PROVIDERS: Emergency Provider Emergency Medicine; Family Provider Internal Medicine Adolescent Medicine; PCP Internal Medicine Adolescent Medicine; Referring Provider Internal Medicine
DX: R07.9 Chest pain, unspecified (principal); F41.8 Other specified anxiety disorders; Z87.442 Personal history of urinary calculi; E03.9 Hypothyroidism, unspecified
CPT/HCPCS: 71045; 80053; 83735; 84484; 84703; 85025; 85378; 87581; 87633; 87798; 93005; 99282

== ENCOUNTER → 2021-05-12 15:28 | Outpatient (CLI) | payer BC, SELFPAY ==
[2021-05-12 16:22] LABS: Hemoglobin A1C 5.4 % (4.0-6.0)
[2021-05-12 17:23] LABS: Vitamin B12 283 pg/mL (239-931)
[2021-05-13 18:20] LABS: Alanine Aminotransferase 14 U/L (12-78); Albumin Level 4.5 g/dl (3.5-5.0); Albumin/Globulin Ratio 1.8 (1.1-1.8); Alkaline Phosphatase 90 U/L (38-126); Anion Gap 13.1 mEq/L (5-15); Aspartate Amino Transferase 24 U/L (14-36); Bilirubin,Total 0.7 mg/dl (0.2-1.3); Blood Urea Nitrogen 12 mg/dl (7-17); Calcium 9.3 mg/dl (8.4-10.2); Carbon Dioxide 29 mmol/L (22.0-30.0); Chloride 103 mmol/L (98-107); Estimated Glomerular Filt Rate 75 ml/min (>60); GFR (African American) 91 ML/MIN (>60); Globulin 2.5 g/dL (1.3-3.2); Glucose 93 mg/dl (74-100); Potassium 5.1 mmoL/L (3.5-5.1); Sodium 140 mmol/L (136-145)
[2021-05-13 19:36] LABS: Free T4 (Free Thyroxine) 1.29 ng/dl (0.78-2.19)
== END ==
PROVIDERS: Visit Provider Nurse Practitioner Family
DX: E03.9 Hypothyroidism, unspecified (principal); E87.6 Hypokalemia; R20.2 Paresthesia of skin
CPT/HCPCS: 36415; 80053; 82306; 82607; 83036; 84439; 84443

== ENCOUNTER → 2021-08-15 16:11 | Outpatient (CLI) | payer BC, SELFPAY | PROVIDERS: PCP Internal Medicine Adolescent Medicine; Visit Provider Nurse Practitioner | DX: Z20.822 Contact with and (suspected) exposure to COVID-19 (principal); U07.1 COVID-19 | CPT/HCPCS: C9803; U0003; U0005 ==

== ENCOUNTER → 2021-12-21 08:01 | Outpatient (CLI) | payer BC, SELFPAY | PROVIDERS: PCP Internal Medicine Adolescent Medicine; Visit Provider Nurse Practitioner | DX: Z20.822 Contact with and (suspected) exposure to COVID-19 (principal) | CPT/HCPCS: C9803; U0003; U0005 ==

== ENCOUNTER 2021-12-28 18:15 | Emergency (ER) | payer BC, SELFPAY ==
[2021-12-28 18:27] VITALS: BP 120/80; PULSE 81; RESP 16; O2SAT 96; BMI 24.7
--- NOTE | 2021-12-28 18:50 | HMH.EDUTC ---
[facility] [place] Disposition Clinical Impression: Migraine Qualifiers: Migraine type: with aura Status migrainosus presence: without status migrainosus Intractability: not intractable Qualified Code(s): G43.109 - Migraine with aura, not intractable, without status migrainosus Sinusitis Qualifiers: Sinusitis location: unspecified location Chronicity: acute Recurrence: non-recurrent Qualified Code(s): J01.90 - Acute sinusitis, unspecified Disposition: Home, Self-Care Condition on Discharge: Good Instructions: Sinusitis, DI for Sinusitis, Migraine -- Adult, DI for Migraine Additional Instructions: Drink plenty of fluids. Take tylenol or ibuprofen for pain or fever. Follow up with your regular doctor. GO TO THE ER FOR ANY WORSENING SYMPTOMS The promethazine will make you drowsy, so don't drive or operate heavy machinery after taking it. Prescriptions: Ibuprofen [Ibuprofen 800mg Tablet] 800 mg PO Q8HP PRN #30 tab PRN Reason: Moderate Pain Transmission Status: Pending to [facility] Promethazine HCl [Phenergan 25mg tab] 25 mg PO Q6H PRN #20 tab PRN Reason: Nausea And Vomiting Transmission Status: Pending to [facility] Referrals: Nathanael Loyd MD [Primary Care Provider] - Forms: Work/School Release Time of Disposition: 19:19 Medical Decision Making - Medical Records Medical records reviewed: No: I reviewed the patient's medical records. - Ervin Inquiry Pt receiving controlled substance: No Vital Signs: 12/28/21 18:27 Pulse Rate [Left] 81 Respiratory Rate 16 Blood Pressure [Right Arm] 120/80 Blood Pressure Mean [Right Arm] 93 02 Sat by Pulse Oximetry 96 Orders (Tests/Meds): ED MEDICATIONS Discontinued Medications Generic Name Dose Route Start Last Admin Trade Name Freq PRN Reason Stop Dose Admin Dexamethasone Sodium Phosphate 8 mg 12/28/21 19:06 Dexamethasone 4mg/Ml 1ml Vial IM 12/28/21 19:07 ONCE ONE Ketorolac Tromethamine 60 mg 12/28/21 19:06 Ketorolac 60mg/2ml Vial IM 12/28/21 19:07 ONCE ONE Promethazine HCl 25 mg 12/28/21 19:06 Promethazine Hcl 25mg/Ml 1ml Vial IM 12/28/21 19:07 ONCE ONE [facility] [place] HPI - General Stated complaint: migraine/nausea Time Seen by Provider: 12/28/21 18:51 Mode of Arrival: Ambulatory Source of Information: Patient Limitations: No Limitations Description of Symptoms (Recalled from Triage Doc. by RN): pt saw Dr. Umaña yesterday and is being treated for a sinus infection. pt states he gave her two ubrelvy to try bc she has had a migraine over 1wk. pt states they did not help at all. pt c/o a migraine with pain in her eyes and the base of her head. pt has photophobia and n/v. pt states this is the same as her typical migraine. HEENT Symptoms (Recalled from RN notes): Yes (migraine) Resp Symptoms (Recalled from RN notes): No Skin Symptoms (Recalled from RN notes): No MS Symptoms (Recalled from RN notes): No Functional Status (Recalled from RN notes): wnl - History of Present Illness Provider Complaint: She is here with complaints of having a migraine headache that she cannot get rid of. She has a sinus infection and she is on antibiotics that were prescribed by her pcp. She believes that the sinus infection is triggering her to have a migraine. She has took ibuprofen, tylenol and Urbrelvy with only minimal temporary relief. She denies any chance that she might have covid-19. She states that she has had covid-19 before and she would know it again if she had it. - Related Data Home Medications Medication Instructions Recorded Confirmed levothyroxine 150 mcg tablet 125 mcg PO DAILY tab 02/26/19 06/06/21 aspirin 81 mg tablet,delayed 81 mg PO DAILY 05/10/21 06/06/21 release bisoprolol fumarate 5 mg tablet 5 mg PO DAILY tab 05/10/21 06/06/21 Previous Rx's Medication Instructions Recorded furosemide 20 mg tablet 20 mg PO DAILY #90 tab 07/26/21 Ibuprofen [Ibuprofen 800mg 800 mg PO Q8HP
[2021-12-28 19:38] VITALS: BP 120/80; PULSE 81; RESP 16; TEMP 36.6
== END 2021-12-28 19:40 | disposition home or self-care (01) ==
PROVIDERS: Emergency Provider Nurse Practitioner Family; PCP Internal Medicine Adolescent Medicine
DX: G43.109 Migraine with aura, not intractable, without status migrainosus (principal); J01.90 Acute sinusitis, unspecified; E03.9 Hypothyroidism, unspecified; F32.9 Major depressive disorder, single episode, unspecified; F17.210 Nicotine dependence, cigarettes, uncomplicated
CPT/HCPCS: 99202; G0463

== ENCOUNTER → 2022-03-02 11:18 | Outpatient (CLI) | payer BC, SELFPAY ==
--- NOTE | 2022-03-02 11:24 | XR_ITS ---
FINAL REPORT CLINICAL HISTORY: LOW BACK PAIN THAT RADIATES DOWN BILATERAL LEGS FOR 2 WEEKS, NKI FINDINGS: LUMBAR SPINE Five views demonstrate no acute fracture. There is straightening of the lumbar spine. Mild degenerative change with osteophytes are present. There is no malalignment. IMPRESSION: Mild degenerative changes Reviewed, Interpreted and Dictated by Kenny Angulo III, MD Transcribed by Lena Floyd Authenticated by Kenny Angulo III, MD on 03/02/2022 12:49:51 PM [facility]
== END ==
PROVIDERS: PCP Internal Medicine Adolescent Medicine; Visit Provider Nurse Practitioner Family
DX: M54.50 Low back pain, unspecified (principal)
CPT/HCPCS: 72110

== ENCOUNTER 2022-03-28 08:00 | Outpatient (RCR) | payer BC, SELFPAY ==
--- NOTE | 2022-03-15 08:36 | HMH.PTOPEV ---
PT Outpatient Evaluation Rehab PT Outpatient Evaluation Start: 03/15/22 08:20 Freq: Status: Active Protocol: Document 03/15/22 08:20 STEVEN (Rec: 03/15/22 08:36 STEVEN [id number]) Electronically Signed By Marck Miles, PT 03/15/22 08:20 Outpatient Therapy Subjective History Subjective History Pt reports h/o chronic LBP with radicular s/s in bilateral LE's. Pt reports N&T and burning in bilateral feet , s/s have improved recently, but now reports increased R>L sided LBP. Pt reports LBP exacerbated w/prolonged standing, and BLT's. Pt reports recent imaging of lumbar spine shows OA. Chief Complaint Pain,Stiff,Paresthesia Symptom Type Ache,Dull,Burning,Numbness, Tingling Symptoms Relieved By Rest/Positioning,Prescription Meds Symptoms Aggravated By Standing,Bending/Stooping, Physical Activity,Twisting, Walking,Lifting Prior Functional Limitations Housework,Standing,Walking Current Functional Limitations Lifting,Housework,Standing, Walking,Bending/Stooping Symptom Description Constant but Variable Level of pain today (0-10) 3 Pain scale - at its best (0-10) 2 Pain scale - at its worst (0-10) 7 Lumbopelvic Eval Posture Thoracic Spine Posture Standing Position Neutral Lumbar Spine Posture Standing Position Neutral Assistive device Assistive Devices None / NA Gait Observation General Gait Pattern Observation No Deviations/Normal Palapation tenderness bilateral lumbar spinal tenderness Yes: 2/4 paraspinal tenderness 3/4 buttock tenderness Yes: 3/4 Lumbar/Sacral Palpation Findings Tenderness,Trigger Point, Muscle Guarding Accessory Movement L-spine Vertebrae Accessory Movements Central P/A [place] that Elicit Symptoms L3 bilateral L4 bilateral Range of Motion Lumbar Spine Active Flexion Range of 0-60 Motion (degrees) Lumbar Spine Active Extension Range of 0-15 Motion (degrees) Left Lumbar Spine Lateral Flexion Active 0-20 Range of Motion (degrees) Right Lumbar Spine Lateral Flexion 0-20 Active Range of Motion (degrees) Lumbar Spine ROM Limitations Pain Manual Muscle Test Left Knee Extension Strength Grade 5 Normal Knee Flexion Strength Grade 5 Normal Hip Flexion Strength Gr
== END 2022-03-28 08:05 | disposition home or self-care (01) ==
LOC: PT 08:00
PROVIDERS: Visit Provider Nurse Practitioner Family
DX: M54.50 Low back pain, unspecified (principal)
CPT/HCPCS: 97010; 97012; 97014; 97110; 97163; G0283

== ENCOUNTER → 2022-03-29 15:51 | Outpatient (CLI) | payer BC, SELFPAY ==
--- NOTE | 2022-03-29 15:54 | MM_ITS ---
PROCEDURE INFORMATION: Exam: MG Bilateral Screening 3D Mammography Exam date and time: 03/29/2022 3:48 PM Age: 51 years old Clinical indication: Screening examination TECHNIQUE: Imaging protocol: Bilateral Screening tomosynthesis and 2D mammography including computer-aided detection (CAD) when performed. COMPARISON: 1. MG MM DIG SCREENING MAMM BI W/CAD 07/02/2020 8:26 AM 2. MG MM DIG SCREENING MAMM BI W/CAD 06/26/2019 11:02 AM 3. MG SCBI MM Dig screening mamm BI w/CAD 05/13/2018 9:09 AM FINDINGS: MAMMOGRAPHY: Breast composition: The breasts are heterogeneously dense, which may obscure small masses. Mass: No suspicious masses. Architectural distortion: No suspicious distortion. Calcifications: No suspicious calcifications. Asymmetric density: None. Skin thickening: None. Axillary adenopathy: None. IMPRESSION: No mammographic evidence of malignancy. Annual screening is recommended unless otherwise clinically indicated. ASSESSMENT: BI-RADS Category 1: Negative
== END ==
PROVIDERS: PCP Internal Medicine Adolescent Medicine; Visit Provider Internal Medicine Adolescent Medicine
DX: Z12.31 Encounter for screening mammogram for malignant neoplasm of breast (principal)
CPT/HCPCS: 77063; 77067

== ENCOUNTER 2022-04-23 17:27 | Emergency (ER) | payer BC, SELFPAY ==
[2022-04-23 17:28] VITALS: BP 127/82; PULSE 114; RESP 18; TEMP 37.1; O2SAT 96; BMI 24.9
--- NOTE | 2022-04-23 17:39 | PC.NURSE ---
pt ambulatory to restroom from Triage without complications. Pt to ED room 8 and was able to provide a UA
[2022-04-23 17:45] LABS: Microscopic, Urine URINE MICROSCOPIC (MICROSCOPIC)
[2022-04-23 17:58] LABS: Bilirubin,Urine Negative (Negative); Blood, Urine TRACE-I (Negative); Color,Urine YELLOW (Yellow); Glucose,Urine (UA) Negative (Negative); Ketones,Urine Negative (Negative); Leukocyte Esterase,Urine TRACE (Negative); Nitrate,Urine Negative (Negative); Protein,Urine Negative (Negative); Specific Gravity, Urine 1.015 (1.005-1.030); Urobilinogen,Urine 0.2 EU/dl (0.2)
[2022-04-23 17:59] LABS: Appearance,Urine Slightly Cloudy (Clear)
[2022-04-23 18:01] LABS: RBC,Urine Occasional #/hpf (0-3); Squamous Epithelial Cell,Urine 50-100 #/hpf (0-5); WBC,Urine Occasional #/hpf (0-3)
--- NOTE | 2022-04-23 18:14 | CT_ITS ---
PROCEDURE INFORMATION: Exam: CT Abdomen And Pelvis Without Contrast Exam date and time: 04/23/2022 6:31 PM Age: 51 years old Clinical indication: Abdominal pain; Generalized; Prior surgery; Surgery date: 6+ months; Surgery type: Gb TECHNIQUE: Imaging protocol: Computed tomography of the abdomen and pelvis without contrast. Radiation optimization: All CT scans at this facility use at least one of these dose optimization techniques: automated exposure control; mA and/or kV adjustment per patient size (includes targeted exams where dose is matched to clinical indication); or iterative reconstruction. COMPARISON: CT ABDOMEN PELVIS WO/W CON 02/20/2020 1:22 PM FINDINGS: Lungs: Minimal regions of postinflammatory scarring at the lung bases. The the Liver: Normal. No mass. Gallbladder and bile ducts: Cholecystectomy. Pancreas: Normal. No ductal dilation. Spleen: Accessory splenic nodule. Adrenal glands: Normal. No mass. Kidneys and ureters: Bilateral perinephric stranding. Findings nonspecific and may reflect acute versus chronic inflammatory change.. Stomach and bowel: Scattered diverticula are demonstrated within the sigmoid colon. Superimposed bowel wall thickening, pericolonic mesenteric stranding. Findings compatible with diverticulitis. (series 1001, image 02/12/2026) Appendix: No evidence of appendicitis. Intraperitoneal space: See Stomach and bowel finding. Vasculature: Unremarkable. No abdominal aortic aneurysm. Lymph nodes: Unremarkable. No enlarged lymph nodes. Urinary bladder: Unremarkable as visualized. Reproductive: Unremarkable as visualized. Bones/joints: Unremarkable. No acute fracture. Soft tissues: Unremarkable. IMPRESSION: Diverticulitis involving the sigmoid colon.
[2022-04-23 18:24] LABS: Basophils # 0.2 K/mm3 (0-0.2); Basophils % 1.4 % (0.1-2.0); Eosinophils # 0.2 K/mm3 (0.0-0.4); Eosinophils % 1.1 % (0.1-12.0); Hematocrit 44.6 % (37.0-47.0); Lymphocytes % 14.5 % (10-50); Mean Corpuscular HGB Conc 33.5 g/dL (31.8-35.4); Mean Corpuscular Hemoglobin 32.4 pg (27.0-31.2); Mean Corpuscular Volume 96.6 fl (81-99); Mean Platelet Volume 7.6 fl (7.4-10.4); Monocytes # 0.5 K/mm3 (0.1-1.0); Neutrophils # 10.8 K/mm3 (1.8-7.8); Neutrophils % 79.1 % (37.0-80.0); Platelet Count 416 K/mm3 (142-424); Red Blood Count 4.62 M/mm3 (4.20-5.40); Red Cell Distribution Width 12.9 % (11.5-17.5); White Blood Count 13.6 K/mm3 (4.8-10.8)
[2022-04-23 18:30] LABS: Alanine Aminotransferase 15 U/L (12-78); Albumin Level 4.1 g/dl (3.5-5.0); Albumin/Globulin Ratio 1.4 (1.1-1.8); Alkaline Phosphatase 105 U/L (38-126); Anion Gap 13.5 mEq/L (5-15); Aspartate Amino Transferase 24 U/L (14-36); Bilirubin,Total 0.7 mg/dl (0.2-1.3); Blood Urea Nitrogen 8 mg/dl (7-17); Calcium 9.3 mg/dl (8.4-10.2); Carbon Dioxide 24 mmol/L (22.0-30.0); Chloride 104 mmol/L (98-107); Creatinine Clearance Estimated 84 mL/min (50-200); Estimated Glomerular Filt Rate 75 ml/min (>60); GFR (African American) 91 ML/MIN (>60); Globulin 2.9 g/dL (1.3-3.2); Glucose 113 mg/dl (74-100); Lipase 76 U/L (23-300); Potassium 3.5 mmoL/L (3.5-5.1); Sodium 138 mmol/L (136-145)
--- NOTE | 2022-04-23 19:10 | HMH.EDGENADL ---
ED Disposition Clinical Impression: Diverticulitis Disposition: Home, Self-Care Condition on Discharge: Good Instructions: DI for Acute Abdominal Pain, Diverticulitis Additional Instructions: Follow-up with your primary care physician, return to the emergency department for any new or concerning symptoms. Prescriptions: Ciprofloxacin HCl [Ciprofloxacin 250mg Tab] 500 mg PO BID 14 Days #28 tab Transmission Status: Pending to [facility] metroNIDAZOLE [Flagyl] 500 mg PO BID #14 cap Transmission Status: Pending to [facility] Referrals: Nathanael Loyd MD [Primary Care Provider] - - Critical Care Critical Care Time: No Attestation: On 04/23/22, the high probability of a clinically significant, sudden or life threatening deterioration of the following system(s) required my full and direct attention, intervention and personal management. The time I documented below is in addition to time spent performing reported procedures but includes the following listed in this critical care notation. Medical Decision Making - Medical Records Medical records reviewed: Yes: I reviewed the patient's medical records. - Ervin Inquiry Pt receiving controlled substance: No Vital Signs: 04/23/22 17:28 Temperature 98.7 F Temperature Source Oral Pulse Rate [Left Radial] 114 H Respiratory Rate 18 Blood Pressure [Right Arm] 127/82 Blood Pressure Mean [Right Arm] 97 Blood Pressure Source [Right Arm] Automatic Cuff Blood Pressure Position [Right Arm] Sitting 02 Sat by Pulse Oximetry 96 Oxygen Delivery Method Room Air - Lab Data Lab results reviewed: Yes: I reviewed the patient's lab results. Lab Results 04/23/22 17:40: Urine Color Yellow, Urine Appearance Slightly cloudy, Urine pH 6.0, Ur Specific [place] 1.015, Urine Protein Negative, Urine Glucose (UA) Negative, Urine Ketones Negative, Urine Blood Trace-i, Urine Nitrate Negative, Urine Bilirubin Negative, Urine Urobilinogen 0.2, Ur Leukocyte Esterase Trace, Urine RBC Occasional, Urine WBC Occasional, Ur Squamous Epith Cells 50-100 04/23/22 18:00: WBC 13.6 H, RBC 4.62, Hgb 15.0, Hct 44.6, MCV 96.6, MCH 32.4 H, MCHC 33.5, RDW 12.9, Plt Count 416, MPV 7.6, Neut % (Auto) 79.1, Lymph % (Auto) 14.5, [place] % (Auto) 4.0, Eos % (Auto) 1.1, Baso % (Auto) 1.4, Neut # (Auto) 10.8 H, Lymph # (Auto) 2.0, [place] # (Auto) 0.5, Eos # (Auto) 0.2, Baso # (Auto) 0.2 04/23/22 18:00: Sodium 138, Potassium 3.5, Chloride 104, Carbon Dioxide 24, Anion Gap 13.5, BUN 8, Creatinine 0.80, Estimated Creat Clear 84, Estimated GFR 75, Est GFR ( Amer) 91, Glucose 113 H, Calcium 9.3, Total Bilirubin 0.7, AST 24, ALT 15, Alkaline Phosphatase 105, Total Protein 7.0, Albumin 4.1, Globulin 2.9, Albumin/Globulin Ratio 1.4, Lipase 76 Result diagrams: 04/23/22 18:00 04/23/22 18:00 Orders (Tests/Meds): ED MEDICATIONS Discontinued Medications Generic Name Dose Route Start Last Admin Trade Name Freq PRN Reason Stop Dose Admin Ketorolac Tromethamine 30 mg 04/23/22 18:10 04/23/22 18:10 Ketorolac 30mg/Ml Vial IV 04/23/22 18:11 30 mg ONCE ONE Administration Levofloxacin 750 mg 04/23/22 20:01 Levofloxacin 750 Mg Tablet PO 04/23/22 20:02 ONCE ONE Metronidazole 500 mg 04/23/22 20:03 Metronidazole 500 Mg Tablet PO 04/23/22 20:04 ONCE ONE Ondansetron HCl 4 mg 04/23/22 18:10 04/23/22 18:10 Ondansetron 4mg/2ml Vial IV 04/23/22 18:11 4 mg ONCE ONE Administration Medical Decision Narrative: Patient is a 51-year-old female presenting to the emergency department with chief complaint of left lower quadrant abdominal pain. Differential diagnosis in this patient includes cystitis, diverticulitis, diverticulosis, complicated diverticulitis, bowel obstruction, enteritis, others. Given this plan to order CBC, CMP, UA, a Noncon. CBC shows a mild leukocytosis, CT Noncon shows signs of diverticulitis. Patient had relief after Toradol and Zofran. Will give patient
[2022-04-23 20:24] VITALS: BP 124/71; PULSE 90; RESP 18; TEMP 37.1; O2SAT 96
== END 2022-04-23 20:25 | disposition home or self-care (01) ==
PROVIDERS: Emergency Provider Emergency Medicine; PCP Internal Medicine Adolescent Medicine
DX: K57.92 Diverticulitis of intestine, part unspecified, without perforation or abscess without bleeding (principal); F41.8 Other specified anxiety disorders; I10 Essential (primary) hypertension; E03.9 Hypothyroidism, unspecified; Z79.899 Other long term (current) drug therapy; Z72.0 Tobacco use; Z87.442 Personal history of urinary calculi
CPT/HCPCS: 74176; 80053; 81001; 83690; 85025; 96374; 96375; 99284; J2405

== ENCOUNTER 2022-06-21 13:12 | Emergency (ER) | payer BC, SELFPAY ==
[2022-06-21 13:37] VITALS: BP 113/72; PULSE 71; RESP 17; TEMP 36.6; O2SAT 98; BMI 25.7
--- NOTE | 2022-06-21 13:40 | HMH.EDUTC ---
[facility] [place] Disposition Clinical Impression: Sinusitis Qualifiers: Sinusitis location: unspecified location Chronicity: unspecified Qualified Code(s): J32.9 - Chronic sinusitis, unspecified Disposition: Home, Self-Care Condition on Discharge: Good Instructions: Sinusitis, DI for Sinusitis, DI for Nausea -- Adult Additional Instructions: *Monitor Temp, Over the counter Motrin or Tylenol as directed/as needed Tylenol every 4 hours and Motrin every 6 hours (as long as your family doctor has told you that you can take it) for fever or pain. and straight to ER if unable to lower temp less than 101.0 after medication given *Warm salt water gargles may help to soothe the throat *Throat Lozenges *Warm fluids like tea with honey may help to soothe the throat *Sleep elevated *Humidifier/Vaporizer Follow up IMMEDIATELY for new or worsening symptoms or no Noticeable improvement over the next 48-72 hours. 911 for difficulty breathing or swallowing Prescriptions: Amoxicillin/Potassium Clav [Amox-Clav 875-125 mg Tablet] 1 tab PO BID #14 tab Transmission Status: Pending to [facility] Fluconazole [Diflucan 150mg tab] 150 mg PO ONCE #1 tab Transmission Status: Pending to [facility] Promethazine HCl [Phenergan 25mg tab] 12.5 mg PO Q6H PRN #10 tab PRN Reason: Nausea And Vomiting Transmission Status: Pending to [facility] Referrals: Nathanael Loyd MD [Primary Care Provider] - As needed Time of Disposition: 13:53 Medical Decision Making - Ervin Inquiry Pt receiving controlled substance: No Ervin was queried for this patient: No Vital Signs: 06/21/22 13:37 Temperature 97.9 F Temperature Source Oral Pulse Rate [Left] 71 Respiratory Rate 17 Blood Pressure [Right Arm] 113/72 Blood Pressure Mean [Right Arm] 85 02 Sat by Pulse Oximetry 98 - Lab Data Lab Results 06/21/22 13:39: Influenza Type A Ag Negative, Influenza Type B Ag Negative Orders (Tests/Meds): ED MEDICATIONS Discontinued Medications Generic Name Dose Route Start Last Admin Trade Name Freq PRN Reason Stop Dose Admin Methylprednisolone Sodium Succinate 125 mg 06/21/22 13:42 06/21/22 13:50 Methylprednisolone Sod Succ 125mg Vial IM 06/21/22 13:43 125 mg ONCE ONE Administration [facility] [place] HPI - General Stated complaint: sinus congestion, ear pain, vomiting Time Seen by Provider: 06/21/22 13:41 Mode of Arrival: Ambulatory Source of Information: Patient Limitations: No Limitations Description of Symptoms (Recalled from Triage Doc. by RN): patient comes in today with complaints of headache, sinus pressure, nausea, vomitting, bilateral ear pain. symptoms began sunday. patient took at home covid test and it was negative this am HEENT Symptoms (Recalled from RN notes): Yes Resp Symptoms (Recalled from RN notes): Yes Skin Symptoms (Recalled from RN notes): No MS Symptoms (Recalled from RN notes): No Functional Status (Recalled from RN notes): n/a - History of Present Illness Provider Complaint: Patient states that she has been having sinus pain and pressure, pain and pressure in her ears headache and nausea States that feels like it does when she gets a bad sinus infection States that she took an at home COVID test and it was negative - Related Data Home Medications Medication Instructions Recorded Confirmed levothyroxine 150 mcg tablet 125 mcg PO DAILY tab 02/26/19 06/06/21 aspirin 81 mg tablet,delayed 81 mg PO DAILY 05/10/21 06/06/21 release bisoprolol fumarate 5 mg tablet 5 mg PO DAILY tab 05/10/21 06/06/21 Furosemide [Furosemide 20mg Tab*] See Rx Instructions .ROUTE .COMPLEX 06/21/22 06/21/22 Previous Rx's Medication Instructions Recorded Amoxicillin/Potassium Clav 1 tab PO BID #14 tab 06/21/22 [Amox-Clav 875-125 mg Tablet] Fluconazole [Diflucan 150mg tab] 150 mg PO ONCE #1 tab 06/21/22 Promethazine HCl [Phenergan 25mg 12.5 mg PO Q6H PRN #10 tab 06/21/22 tab] Allergies
[2022-06-21 13:50] LABS: UTC Influenza A Antigen Negative (Negative)
[2022-06-21 13:51] LABS: UTC Influenza B Antigen Negative (Negative)
[2022-06-21 13:56] VITALS: BP 113/72; PULSE 71; RESP 17; TEMP 36.6; O2SAT 98
== END 2022-06-21 13:56 | disposition home or self-care (01) ==
PROVIDERS: Emergency Provider Nurse Practitioner; PCP Internal Medicine Adolescent Medicine
DX: J32.9 Chronic sinusitis, unspecified (principal)
CPT/HCPCS: 87804; 96372; 99212; G0463

== ENCOUNTER → 2023-01-10 10:29 | Outpatient (CLI) | payer BC, SELFPAY ==
--- NOTE | 2023-01-10 10:58 | XR_ITS ---
FINAL REPORT CLINICAL HISTORY: cp/dyspnea, smoker COMPARISON: 05/05/2021 FINDINGS: PA and lateral views of the chest were obtained. The cardiac and mediastinal silhouettes are within normal limits. There is emphysema. There is evidence of prior granulomatous disease. There are linear opacity in the lingula which are stable and consistent with scarring. There is no new infiltrate, pleural effusion or pneumothorax. No acute osseous abnormality is identified. IMPRESSION: No active process. Emphysema with evidence of prior granulomatous disease. Scarring in the lingula. Reviewed, Interpreted and Dictated by Juliet Nichols MD Transcribed by Kristie Ayoub Authenticated and [facility]
[2023-01-10 11:10] LABS: Basophils # 0.2 K/mm3 (0-0.2); Basophils % 1.8 % (0.1-2.0); Eosinophils # 0.3 K/mm3 (0.0-0.4); Eosinophils % 2.5 % (0.1-12.0); Hematocrit 47.4 % (37.0-47.0); Hemoglobin 15.2 g/dL (12.2-16.2); Lymphocytes # 3.2 K/mm3 (0.7-4.5); Lymphocytes % 32.7 % (10-50); Mean Corpuscular HGB Conc 32.1 g/dL (31.8-35.4); Mean Corpuscular Hemoglobin 31.5 pg (27.0-31.2); Mean Corpuscular Volume 98.4 fl (81-99); Mean Platelet Volume 7.3 fl (7.4-10.4); Monocytes # 0.4 K/mm3 (0.1-1.0); Neutrophils # 5.8 K/mm3 (1.8-7.8); Platelet Count 395 K/mm3 (142-424); Red Blood Count 4.82 M/mm3 (4.20-5.40); Red Cell Distribution Width 13.2 % (11.5-17.5); White Blood Count 9.9 K/mm3 (4.8-10.8)
[2023-01-10 11:18] LABS: Chloride 108 mmol/L (98-107); Sodium 141 mmol/L (136-145)
[2023-01-10 11:20] LABS: Alanine Aminotransferase 18 U/L (12-78); Aspartate Amino Transferase 31 U/L (14-36); Bilirubin,Unconjugated 0.4 mg/dL (0.0-1.1); Blood Urea Nitrogen 13 mg/dl (7-17); Estimated Glomerular Filt Rate 75 ml/min (>60); GFR (African American) 90 ML/MIN (>60)
[2023-01-10 11:21] LABS: Albumin Level 4.5 g/dl (3.5-5.0); Alkaline Phosphatase 100 U/L (38-126); Bilirubin,Direct 0.3 mg/dl (0.0-0.4); Bilirubin,Indirect 0.4 mg/dL (0.0-0.9); Bilirubin,Total 0.7 mg/dl (0.2-1.3); Calcium 9.3 mg/dl (8.4-10.2); Carbon Dioxide 26 mmol/L (22.0-30.0); Chol/HDL Ratio 6.1 (1-3.5); Cholesterol 300 mg/dl (140-200); Glucose 90 mg/dl (74-100); HDL Cholesterol 49 mg/dl (40-60); Magnesium 2.1 mg/dl (1.6-2.3); Total Protein,Serum 7.8 g/dl (6.3-8.2); Triglycerides 286 mg/dl (30-150); VLDL Cholesterol 57 mg/dL (0-40)
[2023-01-10 11:25] LABS: D-Dimer 0.44 ug/mL (0.0-0.5)
[2023-01-10 11:32] LABS: Direct LDL Cholesterol 161.93 mg/dL (100-129)
[2023-01-10 11:34] LABS: Troponin I < 0.01 ng/ml (0.00-0.034)
[2023-01-10 11:51] LABS: Free T4 (Free Thyroxine) 1.86 ng/dl (0.78-2.19)
[2023-01-10 11:52] LABS: Thyroid Stimulating Hormone 1.35 uIU/mL (0.465-4.68)
== END ==
PROVIDERS: PCP Internal Medicine Adolescent Medicine; Visit Provider Nurse Practitioner Family
DX: R06.00 Dyspnea, unspecified (principal); R07.89 Other chest pain; I51.89 Other ill-defined heart diseases; I99.8 Other disorder of circulatory system; Z72.0 Tobacco use; Z79.899 Other long term (current) drug therapy
CPT/HCPCS: 36415; 71046; 80048; 80061; 80076; 83735; 84439; 84443; 84484; 85025; 85378

== ENCOUNTER → 2023-01-23 12:37 | Outpatient (CLI) | payer BC, SELFPAY ==
--- NOTE | 2023-01-23 12:38 | CT_ITS ---
FINAL REPORT TECHNIQUE: Axial imaging of the chest is obtained after the administration of contrast. 3-D MIP reformatted images were also obtained and reviewed per PE protocol. CLINICAL HISTORY: cp/dyspnea FINDINGS: The pulmonary arteries are well filled. There is no evidence of pulmonary embolus. There is no aortic dissection or intimal flap. There is no mediastinal, hilar, or axillary lymphadenopathy. There is inferior left upper lobe atelectasis. There is dependent atelectasis. The lungs are otherwise clear. There is no pleural or pericardial effusion. Limited evaluation of the upper abdomen is without acute abnormality. There is no acute osseous abnormality. IMPRESSION: No evidence of pulmonary embolism or aortic dissection. No acute pulmonary abnormality. Reviewed, Interpreted and Dictated by Juliet Nichols MD Transcribed by Christi Hyde Authenticated and [facility]
--- NOTE | 2023-01-23 13:19 | CA_ITS ---
APPROVED REPORT EXAM: Comprehensive 2D, Doppler, and color-flow Echocardiogram Cushion Gum Applicator: Radha Villaseñor CRT Ht: 5 ft 3 in Wt: 141lbs BSA: 1.67 BP: 100/70 mmHg Indications: Chest Pain, Shortness of Breath, smoker 2D Dimensions LVOT 2.00 cm (M/F) 1.5-2.5 LA Volume 20.80 mL LA Volume Index 12.20 mL/m2 (M/F) 16-34 M-Mode Dimensions RVDd 2.06 cm (0.9-2.6) LA Diam 2.39 cm (1.9-4.0) LVDd 3.93 cm (3.5-5.7) Ao Diam 3.95 cm (2.0-3.7) LVDs 2.57 cm (3.5-5.7) IVSd 0.78 cm (0.6-1.1) PWd 0.86 cm (0.6-1.1) EF (Teich) 64.40% FS 34.60% EDV (Teich) 67.10 mL TAPSE 1.83 (<1.7) ESV (Teich) 23.90 mL LV Diastology E Decel Time 177.00 (160-240 msec) E/A Ratio 1.07 MED E' 8.20 (< 7 cm/sec) MED A' 9.10 cm/s E'/MED E' Ratio 9.41 (>14) LAT E' 9.70 (<10 cm/sec) LAT A' 7.30 cm/s E/LAT E' Ratio 7.96 (>14) Aortic Valve AO Peak GR. 5.80 mmHg Mitral Valve MV A Velocity 72.00 (40-130 cm/s) E/A Ratio 1.07 MV Decel. Time 177.00 (160-240 ms) Pulmonary Valve PV Peak Velocity 114.00 (50-150 cm/s) Tricuspid Valve TR P. Velocity 324.00 cm/s RAP Estimate 10.00 mmHg RVSP 51.90 mmHg Left Ventricle Left atrium is normal size, left ventricle is normal size, estimated ejection fraction 55% with no regional wall motion abnormality, diastolic parameters are within normal range. Right Ventricle Right atrium and right ventricular normal size and contractility. Aortic Valve Aortic valve is grossly normal there is no aortic stenosis or aortic insufficiency. Mitral Valve Mitral valve is grossly normal, there is trace mitral regurgitation. Tricuspid Valve Tricuspid valve grossly normal, there is trace tricuspid regurgitation, tricuspid regurgitation jet velocity is inadequate for calculation of the right ventricular systolic pressure. Pulmonic Valve Pulmonic valve is poorly visualized. Great Vessels Aortic root is normal size. Inferior vena cava is normal size with normal inspiratory collapse. Pericardium No significant pericardial effusion noted. Conclusion 1. Normal left ventricular size preserved left ventricular systolic function, estimated ejection fraction 55% with no regional wall motion abnormality, diastolic parameters are within normal range. 2. Trace mitral and tricuspid regurgitation. 3. No significant pericardial effusion noted. 4. Inferior vena cava normal size with normal inspiratory collapse. Electronically signed by : Satish Orozco MD 01/23/2023 18:41:49
== END ==
LOC: RAD 12:38
PROVIDERS: PCP Internal Medicine Adolescent Medicine; Visit Provider Nurse Practitioner Family
DX: R06.00 Dyspnea, unspecified (principal); R07.89 Other chest pain
CPT/HCPCS: 71275; 93306; Q9967

== ENCOUNTER → 2023-02-13 10:27 | Outpatient (CLI) | payer BC, SELFPAY ==
--- NOTE | 2023-02-13 10:29 | XR_ITS ---
FINAL REPORT TECHNIQUE: Chest PA & Lateral CLINICAL HISTORY: cough COMPARISON: January 10, 2023 FINDINGS: 2 views of the chest were performed. The heart size is normal. The mediastinum is within normal limits. There is mild scarring in the left lung base with new mild atelectasis. There are no pleural effusions. There is no pneumothorax. The bony thorax appears intact. IMPRESSION: Left basilar scarring and atelectasis. Reviewed, Interpreted and Dictated by Romie Grissom MD Transcribed by Atif Mccray Authenticated and [facility]
== END ==
PROVIDERS: PCP Internal Medicine Adolescent Medicine; Visit Provider Student in an Organized Health Care Education/Training Program
DX: R05.9 Cough, unspecified (principal)
CPT/HCPCS: 71046

== ENCOUNTER 2023-06-04 10:17 | Emergency (ER) | payer BC, SELFPAY ==
[2023-06-04] VITALS (8 sets, daily range): BP systolic 101–134; BP diastolic 66–88; PULSE 65–83; RESP 16–20; TEMP 36.8; O2SAT 96–100; BMI 25.4
--- NOTE | 2023-06-04 10:25 | PC.NURSE ---
DR SANDS AT BEDSIDE
--- NOTE | 2023-06-04 10:29 | XR_ITS ---
FINAL REPORT CLINICAL HISTORY: soa COMPARISON: None FINDINGS: SINGLE VIEW CHEST The heart size is normal. The mediastinum is within normal limits. There is left midlung scar and/or atelectasis present. There is no evidence of pneumothorax. The bony thorax is intact. IMPRESSION: Left mid lung scarring and/or atelectasis. Otherwise unremarkable single view chest. Reviewed, Interpreted and Dictated by Kenny Angulo III, MD Transcribed by Valencia Fortune Authenticated and [facility]
--- NOTE | 2023-06-04 10:30 | ECG_ITS ---
APPROVED REPORT Exam: Resting ECG HR:70 bpm ECG Measurements Heart Rate 70 AXES ME 130 P 22 QRSd 84 QRS 68 QT 388 T 31 QTc 410 Conclusion SINUS RHYTHM Incomplete RBBB BORDERLINE ECG UNCONFIRMED REPORT Electronically signed by : Kevyn Fernando MD 06/04/2023 13:57:47
--- NOTE | 2023-06-04 10:31 | HMH.EDGENADL ---
Discharge Plan Disposition Patient Disposition: Home, Self-Care Chief Complaint: Arrhythmia/Palpitations Prescriptions Prescriptions: No Action bisoprolol fumarate 5 mg tablet 5 mg PO DAILY aspirin [Adult Low Dose Aspirin] 81 mg tablet,delayed release (DR/EC) 81 mg PO DAILY rosuvastatin [Crestor] 5 mg tablet 5 mg PO DAILY Qty: 30 2RF doxycycline hyclate 100 mg tablet 100 mg PO BID 10 Days Qty: 20 0RF benzonatate 100 mg capsule 100 mg PO BID PRN (Reason: cough) Qty: 14 0RF nitroglycerin [Nitrostat] 0.4 mg tablet, sublingual 0.4 mg sublingual Q5M PRN (Reason: chest pain) Qty: 20 0RF Rx Instructions: do not exceed 3 doses per episode furosemide 20 mg tablet See Rx Instructions .ROUTE .COMPLEX Qty: 90 1RF Dose Instruction: TAKE 1 TABLET BY MOUTH ONCE DAILY DAILY FOR FLUID Rx Instructions: TAKE 1 TABLET BY MOUTH ONCE DAILY DAILY FOR FLUID levothyroxine 150 mcg tablet 125 mcg PO DAILY Referrals Follow up/Referrals: Kevyn Fernando MD [Primary Care Provider] - See instructions Activity Restrictions/Add. Instructions Additional Instructions/Restrictions: Return the emergency department for worsening chest pain difficulty breathing or any other concerns within the next 8 hours otherwise follow-up with your primary care physician within the next few days and follow-up with cardiology as recommended Clinical Impressions Clinical Impression: Chest pain Discharge ED Provider: Carlitos Michaels General Adult HPI General Chief complaint: Arrhythmia/Palpitations Stated complaint: left arm tingling Time Seen by Provider: 06/04/23 10:32 History of Present Illness HPI narrative: 52-year-old female with history of endothelial dysfunction of the coronary arteries, CHF hyperlipidemia presents with palpitations and left-sided chest pressure for 30 minutes intermittent. She says she had episode of hand tightening but that is getting better now and she felt dizzy as well but that is improving as well. She says the pain is not tearing or ripping going to her back at all and she says no hemoptysis leg swelling nausea vomiting headache or any other issues Related Data Home Medications Medication Instructions Recorded Confirmed levothyroxine 150 mcg tablet 125 mcg PO DAILY THYROID 02/26/19 02/13/23 REPLACEMENT aspirin 81 mg tablet,delayed 81 mg PO DAILY 05/10/21 02/13/23 release (Adult Low Dose Aspirin) bisoprolol fumarate 5 mg tablet 5 mg PO DAILY 05/10/21 02/13/23 Previous Rx's Medication Instructions Recorded nitroglycerin 0.4 mg sublingual 0.4 mg sublingual Q5M PRN chest 01/10/23 tablet (Nitrostat) pain #20 tabs rosuvastatin 5 mg tablet (Crestor) 5 mg PO DAILY #30 tabs 01/30/23 furosemide 20 mg tablet See Rx Instructions .Route 02/06/23 .COMPLEX #90 tabs doxycycline hyclate 100 mg tablet 100 mg PO BID 10 days #20 tabs 02/09/23 benzonatate 100 mg capsule 100 mg PO BID PRN cough #14 caps 02/13/23 Allergies Allergy/AdvReac Type Severity Reaction Status Date / Time isosorbide [From Imdur] Allergy Mild Verified 02/13/23 09:51 [facility] Disclaimer: The information contained in this section may have been updated after the patient was seen, as this information can be updated by other users. Medical History Chest pain Diastolic dysfunction Dyspnea Endothelial dysfunction of coronary artery HLD (hyperlipidemia) Holter monitor, abnormal SOB (shortness of breath) SVT (supraventricular tachycardia) Tobacco abuse Tobacco dependence syndrome Social History Smoking Status: Current every day smoker tobacco type: cigarettes packs per day: 1 alcohol intake: never substance use type: denies use current occupational status: other Travel in the last 8 weeks: Inside the [place] household members: spouse housing: house current occup
--- NOTE | 2023-06-04 10:36 | PC.NURSE ---
XR AT BEDSIDE
[2023-06-04 10:41] LABS: Basophils # 0.1 K/mm3 (0-0.2); Basophils % 0.6 % (0.1-2.0); Eosinophils # 0.2 K/mm3 (0.0-0.4); Eosinophils % 2.4 % (0.1-12.0); Hematocrit 43.1 % (37.0-47.0); Hemoglobin 14.1 g/dL (12.2-16.2); Lymphocytes # 2.5 K/mm3 (0.7-4.5); Lymphocytes % 30.8 % (10-50); Mean Corpuscular HGB Conc 32.7 g/dL (31.8-35.4); Mean Corpuscular Hemoglobin 31.6 pg (27.0-31.2); Mean Corpuscular Volume 96.6 fl (81-99); Mean Platelet Volume 7.6 fl (7.4-10.4); Monocytes # 0.3 K/mm3 (0.1-1.0); Monocytes % 3.8 % (1.7-9.3); Neutrophils # 5.1 K/mm3 (1.8-7.8); Neutrophils % 62.4 % (37.0-80.0); Platelet Count 428 K/mm3 (142-424); Red Blood Count 4.46 M/mm3 (4.20-5.40); Red Cell Distribution Width 13.4 % (11.5-17.5); White Blood Count 8.2 K/mm3 (4.8-10.8)
[2023-06-04 10:55] LABS: Alanine Aminotransferase 21 U/L (12-78); Albumin Level 4.6 g/dl (3.5-5.0); Albumin/Globulin Ratio 1.3 (1.1-1.8); Alkaline Phosphatase 121 U/L (38-126); Aspartate Amino Transferase 31 U/L (14-36); Bilirubin,Total 0.6 mg/dl (0.2-1.3); Blood Urea Nitrogen 8 mg/dl (7-17); Calcium 9.7 mg/dl (8.4-10.2); Carbon Dioxide 29 mmol/L (22.0-30.0); Chloride 106 mmol/L (98-107); Creatinine Clearance Estimated 76 mL/min (50-200); Estimated Glomerular Filt Rate 65 ml/min (>60); GFR (African American) 79 ML/MIN (>60); Globulin 3.5 g/dL (1.3-3.2); Glucose 102 mg/dl (74-100); Sodium 142 mmol/L (136-145); Total Protein,Serum 8.1 g/dl (6.3-8.2)
--- NOTE | 2023-06-04 11:08 | PC.NURSE ---
PT ASSISTED TO BR
[2023-06-04 11:47] LABS: Troponin I < 0.01 ng/ml (0.00-0.034)
--- NOTE | 2023-06-04 12:35 | PC.NURSE ---
rounded on pt, pt given warm blanket, lights dimmed in room per pt request for comfort. call [facility] in reach
--- NOTE | 2023-06-04 13:12 | PC.NURSE ---
PT REPORTS SHE FEELS BETTER AND WOULD LIKE TO GO HOME, MD NOTIFIED
--- NOTE | 2023-06-04 13:19 | PC.NURSE ---
PT AGREES TO STAY FOR REPEAT TROP RESULTS. BLOOD SENT TO LAB
[2023-06-04 14:00] LABS: Troponin I < 0.01 ng/ml (0.00-0.034)
== END 2023-06-04 14:25 | disposition home or self-care (01) ==
PROVIDERS: Emergency Provider Emergency Medicine; PCP Internal Medicine Adolescent Medicine
DX: R07.9 Chest pain, unspecified (principal); R00.2 Palpitations; R20.2 Paresthesia of skin; I47.1 Supraventricular tachycardia; E78.5 Hyperlipidemia, unspecified; F17.210 Nicotine dependence, cigarettes, uncomplicated
CPT/HCPCS: 71045; 80053; 84484; 85025; 93005; 99285

== ENCOUNTER → 2023-07-11 09:05 | Outpatient (CLI) | payer BC, SELFPAY ==
[2023-07-11 10:24] LABS: Alanine Aminotransferase 23 U/L (12-78); Albumin Level 4.6 g/dl (3.5-5.0); Alkaline Phosphatase 98 U/L (38-126); Aspartate Amino Transferase 31 U/L (14-36); Bilirubin,Indirect 0.5 mg/dL (0.0-0.9); Bilirubin,Total 0.5 mg/dl (0.2-1.3); Bilirubin,Unconjugated 0.6 mg/dL (0.0-1.1); HDL Cholesterol 62 mg/dl (40-60); Total Protein,Serum 7.8 g/dl (6.3-8.2); Triglycerides 332 mg/dl (30-150); VLDL Cholesterol 66 mg/dL (0-40)
[2023-07-11 10:33] LABS: Chol/HDL Ratio 5.8 (1-3.5); Cholesterol 360 mg/dl (140-200)
[2023-07-11 10:35] LABS: Direct LDL Cholesterol 195.94 mg/dL (100-129)
== END ==
PROVIDERS: PCP Internal Medicine Adolescent Medicine; Visit Provider Nurse Practitioner Family
DX: R42 Dizziness and giddiness (principal); R55 Syncope and collapse; E78.5 Hyperlipidemia, unspecified; I51.89 Other ill-defined heart diseases; I99.8 Other disorder of circulatory system; Z72.0 Tobacco use
CPT/HCPCS: 36415; 80061; 80076; 93270

== ENCOUNTER → 2023-07-24 13:23 | Outpatient (CLI) | payer BC, SELFPAY ==
--- NOTE | 2023-07-24 | CT_ITS ---
FINAL REPORT TECHNIQUE: thin section axial CT with and without IV contrast supplemented with multiplanar 3-D reconstruction of the head. This study was performed with techniques to keep radiation doses as low as reasonably achievable, (ALARA)individualized dose reduction techniques using automated exposure control or adjustment of mA and/or kV according to the patient's size were employed. CLINICAL HISTORY: DIZZINESS, NEAR SYNCOPE FINDINGS: HEAD CT: The ventricles are normal in size. There is no evidence of hemorrhage. No masses are identified. No extra-axial fluid is seen. The sinuses are normal. CTA: The cranial circulation is unremarkable. There is no significant stenosis, aneurysm or occlusion. IMPRESSION: No acute process. Reviewed, Interpreted and Dictated by Romie Grissom MD Transcribed by Christi Hyde Authenticated and [facility]
--- NOTE | 2023-07-24 | CT_ITS ---
FINAL REPORT TECHNIQUE: NASCET technique utilized for stenosis evaluation. CLINICAL HISTORY: DIZZY, NEAR SYNCOPE FINDINGS: RIGHT CAROTID: No significant stenosis is seen of the cervical common or internal carotid artery. LEFT CAROTID: No significant stenosis seen of the cervical common or internal carotid artery. VERTEBRALS: The vertebrals are patent. No significant stenosis is present. IMPRESSION: No significant arterial abnormality. Reviewed, Interpreted and Dictated by Romie Grissom MD Transcribed by Christi Hyde Authenticated and [facility]
== END ==
PROVIDERS: PCP Internal Medicine Adolescent Medicine; Visit Provider Nurse Practitioner
DX: R42 Dizziness and giddiness (principal); R55 Syncope and collapse; I99.8 Other disorder of circulatory system; E78.5 Hyperlipidemia, unspecified; Z72.0 Tobacco use
CPT/HCPCS: 70496; 70498